=== PATIENT | female | born 2000 | race Caucasian/White ===

== ENCOUNTER 2023-10-21 21:22 | Emergency (ER) | payer OTHER, BC ==
[2023-10-21 21:40] VITALS: BP 119/75; PULSE 85; RESP 16; TEMP 99.1; BMI 20.5
[2023-10-21 22:54] LABS: HEMATOCRIT 38.4 % (32.4-45.2); HEMOGLOBIN 12.7 G/dL (10.7-15.3); MCH 29.4 pg (25.7-33.7); MEAN CELL VOLUME 88.8 fl (80-96); MEAN PLT VOLUME 8.8 fl (7.5-11.1); RBC 4.32 10^6/uL (3.60-5.2); RDW 13.9 % (11.6-15.6); WHITE BLOOD COUNT 5.4 10^3/uL (4.0-10.8)
[2023-10-21 23:17] LABS: BILIRUBIN,TOTAL 0.3 mg/dl (0.2-1); CALCIUM 9.1 mg/dl (8.5-10.1); CREATININE 0.7 mg/dl (0.6-1.3); POTASSIUM 3.8 mmol/L (3.5-5.1); TOT PROT 6.6 g/dl (6.4-8.2)
[2023-10-21] MEDS ORDERED: ONDANSETRON 4 MG TABLET PO ONE (23:35)
[2023-10-21] MEDS ORDERED: ONDANSETRON *ODT* 4 MG TABLET ONE (23:41)
== END 2023-10-21 23:50 | disposition home or self-care (01) ==
LOC: FER 21:22
DX: R10.84 Generalized abdominal pain (principal); K52.9 Noninfective gastroenteritis and colitis, unspecified; J06.9 Acute upper respiratory infection, unspecified
CPT/HCPCS: 36415; 74176-TC; 80053; 85027; 99284-25